=== PATIENT | female | born 1995 | race Caucasian/White ===

== ENCOUNTER 2017-11-25 19:07 | Emergency (ER) | payer MEDICAID, SELFPAY ==
[2017-11-25 19:07] VITALS: BP 124/92; PULSE 65; RESP 16; TEMP 36.7; O2SAT 98; BMI 33.5
--- NOTE | 2017-11-25 20:09 | ED.DCSUM_ITS ---
- ER Visit Summary Date of Service: 11/25/17 Chief Complaint: Tooth pain History of Present Illness: The patient is a 22 F presenting with tooth pain. Patient was eating food on Friday and cracked her right upper tooth. She cannot get into her dentist until next Friday. She has been taking Tylenol at home. Denies other complaints. Physical Examination: Vitals are stable. Patient is afebrile. Alert no acute distress. HEENT exam right upper molar fracture with no surrounding fluctuance. Lungs are clear and equal bilaterally. Heart is regular rate and rhythm. Extremities are unremarkable. Skin is warm and dry. Remainder of exam is unremarkable. Emergency Department Course and Treatment: Cavit was applied. She declined pain medications. She is advised to continue Tylenol. Advised to return to ED for worsening complaints. Disposition: Discharge home Impression: Fractured tooth This note was generated with [employer] dictation software. It may contain incorrect words, spelling, and punctuation that were not noted in review of the chart prior to signing ED Disposition - Plan for ED Patient: Chief Complaint: Dental Instructions: ED Fx Tooth Referrals: Care Physician,No Primary [Primary Care Provider] -
--- NOTE | 2017-11-25 20:17 | ED.DEP ---
ED Disposition - Plan for ED Patient: Chief Complaint: Dental Instructions: ED Fx Tooth Referrals: Care Physician,No Primary [Primary Care Provider] -
[2017-11-25 20:22] VITALS: BP 122/82; PULSE 75; RESP 16; O2SAT 98
== END 2017-11-25 20:23 | disposition home or self-care (01) ==
LOC: ED 19:54
PROVIDERS: Emergency Provider Emergency Medicine
DX: S02.5XXA Fracture of tooth (traumatic), initial encounter for closed fracture (principal); X58.XXXA Exposure to other specified factors, initial encounter; Y93.9 Activity, unspecified; Y92.9 Unspecified place or not applicable; Z72.0 Tobacco use
CPT/HCPCS: 99282

== ENCOUNTER 2018-02-15 05:17 | Emergency (ER) | payer MEDICAID, SELFPAY ==
[2018-02-15 05:18] VITALS: BP 119/77; PULSE 57; RESP 20; TEMP 36.7; O2SAT 98; BMI 34.7
[2018-02-15] MEDS: HYDROmorphone 1 MG/ML Syringe IM (07:59)
[2018-02-15] MEDS: Ondansetron 4 MG/2 ML Vial IM (07:59)
--- NOTE | 2018-02-15 08:39 | ED.DEP ---
ED Disposition - Plan for ED Patient: Chief Complaint: Dental Instructions: ED Tooth Pain Prescriptions: Oxycodone HCl/Acetaminophen [Percocet 5/325] 1 tablet PO Q6H PRN PRN 3 Days #8 tablet PRN Reason: Pain Ondansetron [Zofran Odt] 4 mg PO Q8H PRN PRN #10 tablet PRN Reason: Nausea Referrals: Care Physician,No Primary [Primary Care Provider] -
[2018-02-15 08:45] VITALS: RESP 15
--- NOTE | 2018-02-15 09:49 | ED.VISSUMM ---
- ER Visit Summary Date of Service: 02/15/18 Chief Complaint: Mouth pain History of Present Illness: The patient is a 22 F presenting with mouth pain. Patient had 5 teeth removed earlier in the week. She was given a prescription for [place]. She states this makes her nauseated and she is unable to tolerate it. She vomits when she tries to take [place]. Denies fever. No swelling. She denies other complaints. Physical Examination: Vitals are stable. Patient is afebrile. Alert no acute distress. HEENT exam lower molar tenderness, no fluctuance, no signs of dry socket, no sublingual edema Neck is supple. Lungs are clear and equal bilaterally. Heart is regular rate and rhythm. Skin is warm and dry. Remainder of exam is unremarkable. Emergency Department Course and Treatment: Patient is given Dilaudid, Zofran IM. She has improvement of her symptoms. She is given a prescription for Zofran and short course of Percocet. She is advised to follow-up with her dentist. Advised return to ED if worsening complaints. Disposition: Discharge home Impression: Post dental extraction pain This note was generated with [employer] dictation software. It may contain incorrect words, spelling, and punctuation that were not noted in review of the chart prior to signing ED Disposition - Plan for ED Patient: Disposition: Home or Assisted Living Chief Complaint: Dental Instructions: ED Tooth Pain Prescriptions: Oxycodone HCl/Acetaminophen [Percocet 5/325] 1 tablet PO Q6H PRN PRN 3 Days #8 tablet PRN Reason: Pain Ondansetron [Zofran Odt] 4 mg PO Q8H PRN PRN #10 tablet PRN Reason: Nausea Referrals: Care Physician,No Primary [Primary Care Provider] -
== END 2018-02-15 08:46 | disposition home or self-care (01) ==
LOC: ED 05:39
PROVIDERS: Emergency Provider Emergency Medicine
DX: K08.89 Other specified disorders of teeth and supporting structures (principal); Z98.818 Other dental procedure status; Z72.0 Tobacco use
CPT/HCPCS: 96372; 99282; J2405

== ENCOUNTER 2018-04-06 21:21 | Emergency (ER) | payer MEDICAID, SELFPAY ==
[2018-04-06 21:22] VITALS: BP 133/65; PULSE 82; RESP 18; TEMP 36.6; O2SAT 99; BMI 31.2
[2018-04-06 21:30] VITALS: RESP 16
--- NOTE | 2018-04-06 21:39 | ED.VISSUMM ---
- ER Visit Summary Date of Service: 04/06/18 Chief Complaint: Left ear pain and decreased hearing History of Present Illness: The patient is a 22 F who presents for 2-3 weeks of diminished hearing in the left ear and mild pain. Patient states she has had gradual worsening and is tried to clean her ear out. She used an ear candle and removed a large amount of wax but did not resolve her symptoms. She denies any fever, sore throat, rhinorrhea, sinus pressure or congestion, headache, cough, or any other upper airway symptoms or other associated symptoms. Patient has no family doctor. Physical Examination: Vital signs: afebrile, hemodynamically stable, no hypoxia on room air General: well nourished, well developed, in no distress Skin: warm, dry, no rash, no pallor HEENT: normocephalic and atraumatic; PERRL, EOMI, moist mucous membranes, no posterior oropharyngeal erythema or exudate, no sinus congestion, TM is pearly without any dullness or bulging, normal external canal. Left ear shows normal external anatomy, significant cerumen impaction, nonvisualization of the TM. No mastoid tenderness. No periauricular lymphadenopathy., Neck is supple with no lymphadenopathy or tenderness, no meningismus. Cardiovascular: regular rate and rhythm, no peripheral edema, 2+ pulses all distal extremities Respiratory: No increased work of breathing MSK: Moves all extremities, no deformities, normal strength Neuro: Awake and alert, oriented ?4. No facial droop, sensation and motor function intact and symmetric Test Results: [] Emergency Department Course and Treatment: Debrox drops were applied to the left ear to address the cerumen impaction. After irrigation, large amount of earwax was removed and patient had resolution of her decreased hearing. Reevaluation of the left ear showed a normal TM that was pearly, no dullness, and no erythema or bulging. External ear canal showed no signs of swelling, erythema or exudate. Patient is well appearing, no abnormal vital signs, no fever, and no findings concerning for upper respiratory infection or acute otitis media. Patient will use [id number] pain medication as needed for any residual pain. Patient is to follow-up with a primary care doctor and was given referral. Treatment Plan: [] Disposition: Discharge home Impression: Left cerumen impaction This note was generated with Dragon dictation software. It may contain incorrect words, spelling, and punctuation that were not noted in review of the chart prior to signing ED Disposition - Plan for ED Patient: Chief Complaint: Ear Problem Referrals: Care Physician,No Primary [Primary Care Provider] -
[2018-04-06] MEDS: Carbamide Peroxide 15 ML Bottle 5 DRP OTIC (21:53)
--- NOTE | 2018-04-06 23:02 | ED.DEP ---
ED Disposition - Plan for ED Patient: Disposition: Home or Assisted Living Chief Complaint: Ear Problem Instructions: ED Cerumen Impaction Treated Referrals: Care Physician,No Primary [Primary Care Provider] - Kathy Sesay MD [COURTESY STAFF PHYSICIAN] - 3-5 Days if not improving
== END 2018-04-06 23:12 | disposition home or self-care (01) ==
PROVIDERS: Emergency Provider Emergency Medicine
DX: H61.22 Impacted cerumen, left ear (principal)
CPT/HCPCS: 99282

== ENCOUNTER → 2020-09-01 11:44 | Outpatient (CLI) | payer MEDICAID, SELFPAY ==
--- NOTE | 2020-09-01 11:59 | RAD_ITS ---
STUDY: X-RAY CHEST REASON FOR EXAM: Female, 25 years old. PNEUMONIA/UNSPEC ORGANISM TECHNIQUE: PA and lateral views of the chest. COMPARISON: None. FINDINGS: The lungs are clear and expanded. There is no demonstrated pleural abnormality. Normal size heart. Normal mediastinum and gaby. Normal visualized pulmonary arteries. Normal visualized aortic arch and descending thoracic aorta. Normal visualized thoracic spine. Normal visualized ribs, clavicles, and shoulders. There is no demonstrated abnormality of the visualized soft tissue structures of the upper abdomen. RAD/Chest PA and Lateral IMPRESSION: Normal x-ray examination of the chest. Electronically Signed: Al Silver MD at 16:52 EDT Tel , Service support ,
== END ==
PROVIDERS: Referring Provider Nurse Practitioner Adult Health; Visit Provider Nurse Practitioner Adult Health
DX: J18.9 Pneumonia, unspecified organism (principal); I49.9 Cardiac arrhythmia, unspecified
CPT/HCPCS: 36415; 71046; 83036

== ENCOUNTER → 2020-09-07 09:22 | Outpatient (CLI) | payer MEDICAID, SELFPAY ==
--- NOTE | 2020-09-07 10:05 | EKG12_ITS ---
Test Reason : ARRHYTHMIA Blood Pressure : / mmHG Vent. Rate : 050 BPM Atrial Rate : 050 BPM P-R Int : 126 ms QRS Dur : 096 ms QT Int : 484 ms P-R-T Axes : -16 064 035 degrees QTc Int : 441 ms Sinus bradycardia with sinus arrhythmia Otherwise normal ECG Confirmed by NOAH IRBY, PASQUALE ([id number]), editorial specialist AUBREY ABRAMS ([id number]) on 09/07/2020 2:01:02 PM Referred By: [facility] Confirmed By:PASQUALE ZAMORA MD
[2020-09-07 11:38] LABS: Absolute Lymphocyte Count 1.39 X10^3/uL (0.83-4.51); Absolute Neutrophil Count 2.4 X10^3/uL (2.0-7.7); Basophil# 0.02 X10^3/uL; Basophil% 0.5 % (0-1); Eosinophils% 4.6 % (0-5); Hematocrit 43.5 % (37-47); Hemoglobin 13.9 g/dL (12.0-15.0); Lymphocyte # 1.39 X10^3/ul (4.0); Lymphocyte % 31.9 % (19-41); Mean Corpuscular Hgb 30.2 pg (27.0-32.0); Mean Corpuscular Volume 94.6 fL (81-99); Mean Platelet Vol. 10.8 fl (6.2-12.0); Monocyte# 0.36 X10^3/uL; Monocyte% 8.3 % (0-10); NRBC Flagged by Analyzer 0 % (0-5); Neutrophil # 2.38 X10^3/uL (2.7-7.7); Neutrophil % 54.5 % (47-70); Platelet Count 275 K/mm3 (150-450); RBC Distribution Width CV 12.5 % (11.6-14.6); RBC Distribution Width SD 43.4 fl (35.1-43.9); White Blood Count 4.4 K/mm3 (4.4-11.0)
[2020-09-07 12:15] LABS: AST(SGOT) 13 U/L (15-37); Alanine Aminotransfer ALT/SGPT 24 U/L (13-56); Albumin, Serum 3.5 g/dL (3.2-5.0); Alkaline Phosphatase 56 U/L (45-117); Anion Gap 6 (5-15); BUN 8 mg/dL (7-18); BUN/Creat Ratio 8.9 RATIO (10-20); Calcium,Total 8.7 mg/dL (8.5-10.1); Chloride 108 mmol/L (98-107); Cholesterol 185 mg/dL (200); EST Glomerular Filtration Rate 80 mL/min (>60); Est Glom Filt Rate - Afr Amer 97 mL/min (>60); Globulin 3.6 g/dL (2.2-4.2); Glucose 92 mg/dL (74-106); High Density Lipoprotein 43 mg/dL; Potassium 3.4 mmol/L (3.5-5.1); Protein, Total 7.1 g/dL (6.4-8.2); Sodium Level 141 mmol/L (136-145); Thyroid Stim Hormone (TSH) 0.64 uIU/mL (0.358-3.74); Triglycerides 121 mg/dL; Very Low Density Lipoprotein 24 mg/dL (5-40)
--- NOTE | 2020-09-07 12:54 | PFTCOMP ---
COMPLETE PULMONARY FUNCTION TEST INTERPRETATION Brief HPI: Patient is a 25 year old female, currently under the care of [facility], who presents to [facility] for complete pulmonary function tests secondary to diagnosis of pneumonia. Respiratory therapist reports good effort and reproducible results. Interpretation: Forced expiration spirometry shows a mild large airways obstructive ventilatory defect with an FEV1 of 94% predicted. There is no significant bronchodilator response by strict ATS criteria. Spirograms are of good quality and plateau slowly, indicating slowly emptying areas of the lungs. The respiratory flow volume loop shows decreased expiratory flow rates at high lung volumes consistent with small airways obstruction. Lung volumes by body plethysmography show a normal total lung capacity at 5.41 L, 97% predicted. All other lung volumes are within normal limits. Diffusion capacity by carbon monoxide is slightly decreased at 70% predicted. The airway resistance is normal. No previous pulmonary function tests were available for review. Impression: Irreversible mild large airways obstructive ventilatory defect with a symmetric reduction diffusing capacity.
== END ==
DX: J18.9 Pneumonia, unspecified organism (principal); R06.02 Shortness of breath; I49.9 Cardiac arrhythmia, unspecified
CPT/HCPCS: 36415; 80053; 80061; 84443; 85025; 93005; 94060; 94726; 94729

== ENCOUNTER → 2020-10-11 09:15 | Outpatient (CLI) | payer MEDICAID, SELFPAY ==
--- NOTE | 2020-10-11 09:30 | RAD_ITS ---
STUDY: X-RAY - LEFT KNEE REASON FOR EXAM: Left knee pain, mostly anterior. TECHNIQUE: 4 view(s) of the knee. COMPARISON: None. FINDINGS: Normal visualized distal femur. Normal visualized proximal tibia and fibula. Normal proximal tibiofibular articulation. Normal medial femorotibial compartment. Normal lateral femorotibial compartment. Normal patellofemoral articulation. The soft tissue structures are unremarkable. RAD/Knee 4 or More Views IMPRESSION: Normal x-ray examination of the left knee. Electronically Signed: Noé Knox MD at 10:24 EDT Tel , Service support ,
== END ==
DX: M25.562 Pain in left knee (principal)
CPT/HCPCS: 73564

== ENCOUNTER → 2020-11-29 14:55 | Outpatient (CLI) | payer MEDICAID, SELFPAY ==
--- NOTE | 2020-11-29 14:58 | CT_ITS ---
STUDY: CT CHEST WITH CONTRAST REASON FOR EXAM: Female, 25 years old. COPD RADIATION DOSAGE (If Supplied By Facility): CTDIvol = ( 10.28 ) mGy, DLP = ( 402.24 ) mGycm TECHNIQUE: Transaxial imaging was performed following intravenous administration of IV 100mL Isovue-300. Individualized dose optimization techniques were used for this CT. COMPARISON: None. FINDINGS: The lungs are normal. There is no demonstrated pleural abnormality. Normal heart and pericardium. Normal mediastinum. Normal hilar regions. Normal enhanced pulmonary arteries including the segmental and subsegmental branches without evidence of filling defect. Normal aorta arch and descending thoracic aorta. Normal osseous structures. There is no demonstrated abnormality of the visualized upper abdomen. CT/Chest WITH Contrast IMPRESSION: Normal enhanced CT Chest examination no evidence of PE. Electronically Signed: Stacie Cai, at 8:43 EDT Tel , Service support ,
== END ==
PROVIDERS: Referring Provider Nurse Practitioner Adult Health; Visit Provider Nurse Practitioner Adult Health
DX: J44.9 Chronic obstructive pulmonary disease, unspecified (principal)
CPT/HCPCS: 71260; Q9967

== ENCOUNTER → 2021-01-19 20:29 | Outpatient (CLI) | payer MEDICAID, SELFPAY | PROVIDERS: Referring Provider Nurse Practitioner Adult Health; Visit Provider Nurse Practitioner Adult Health | DX: G47.30 Sleep apnea, unspecified (principal) | CPT/HCPCS: 95810 ==

== ENCOUNTER 2021-11-27 22:27 | Emergency (ER) | payer OTHER, MEDICAID, SELFPAY ==
[2021-11-27 22:29] VITALS: BP 116/85; PULSE 87; RESP 16; TEMP 36.4; O2SAT 100; BMI 34.4
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
[2021-11-28] MEDS: cycloBENZAPRine HCl 10 MG Tablet PO (01:31)
[2021-11-28 01:34] VITALS: BP 120/63; PULSE 72; RESP 18; O2SAT 98
== END 2021-11-28 01:35 | disposition home or self-care (01) ==
PROVIDERS: Emergency Provider Emergency Medicine; Visit Provider Emergency Medicine
DX: S16.1XXA Strain of muscle, fascia and tendon at neck level, initial encounter (principal); V53.5XXA Driver of pick-up truck or van injured in collision with car, pick-up truck or van in traffic accident, initial encounter; K58.9 Irritable bowel syndrome, unspecified; F17.210 Nicotine dependence, cigarettes, uncomplicated
CPT/HCPCS: 70450; 71045; 72125; 99283

== ENCOUNTER 2022-01-28 10:30 | Outpatient (RCR) | payer MEDICAID, SELFPAY ==
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
== END 2022-01-28 19:00 | disposition home or self-care (01) ==
LOC: PT 10:30
PROVIDERS: PCP Nurse Practitioner Adult Health; Referring Provider Nurse Practitioner Adult Health; Visit Provider Nurse Practitioner Adult Health
DX: M54.6 Pain in thoracic spine (principal)
CPT/HCPCS: 97035; 97110; 97140; 97161

== ENCOUNTER 2022-05-12 13:53 | Emergency (ER) | payer BC, MEDICAID, SELFPAY ==
[2022-05-12 13:55] VITALS: BP 123/80; PULSE 70; RESP 18; TEMP 36; O2SAT 100
--- NOTE | 2022-05-12 14:07 | RAD_ITS ---
STUDY: X-RAY CHEST REASON FOR EXAM: Female, 26 years old. Cough TECHNIQUE: Single AP portable view of the chest. COMPARISON: November 28, 2021 chest x-ray FINDINGS: The lungs are clear and expanded. There is no demonstrated pleural abnormality. Normal size heart. Normal mediastinum and gaby. Normal visualized pulmonary arteries. Normal visualized aortic arch and descending thoracic aorta. Normal visualized thoracic spine. Normal visualized ribs, clavicles, and shoulders. There is no demonstrated abnormality of the visualized soft tissue structures of the upper abdomen. RAD/Chest 1 View (Portable) IMPRESSION: Normal x-ray examination of the chest. Electronically Signed: Yanelis Estevez MD at 15:11 EST Reading Location ID and State: [facility] / [place] Tel , Service support ,
--- NOTE | 2022-05-12 14:09 | EX.ED.DYSGE1 ---
HPI History of Present Illness Chief Complaint: Cough Informant: patient Narrative Narrative: 26-year-old female presenting to the emergency department chief complaint of continued cough. Patient states that last Friday night she began to feel ill with diarrhea and then developed cough and some congestion. She states she had a couple days where she started to feel good but is progressively gotten worse in terms of her cough and her ability to breathe patient. She states that her lungs feel like they hurt and she is having a hard time taking a deep breath. The cough is occasionally productive. Diarrhea is continuing. She states that she took a home COVID test and took a COVID test at her work that was negative. She has had intermittent fever that is low-grade in the 99-100 range. She feels dehydrated but does states that she has been drinking a lot of fluid. She states she has a history of asthma and COPD and smokes [facility] Medical History Cervical strain CHI (closed head injury) IBS (irritable bowel syndrome) Home Medications cyclobenzaprine 10 mg tablet 10 mg PO BID PRN muscle spasm #10 tabs 11/28/21 [Rx Last Taken Unknown] Allergy/AdvReac Type Severity Reaction Status Date / Time amoxicillin Allergy Anaphylaxis Verified 05/12/22 13:54 naproxen Allergy Anaphylaxis Verified 05/12/22 13:54 clindamycin AdvReac Nausea/Vom/ Verified 05/12/22 13:54 Diarrhea Penicillins AdvReac Hives Verified 05/12/22 13:54 tramadol AdvReac Nausea/Vom/ Verified 05/12/22 13:54 Diarrhea Social History (Updated 05/12/22 @ 14:[address] Behzad Reeder DO) Smoking Status: Current every day smoker tobacco type: cigarettes substance use type: does not use ROS ROS ED Constitutional Constitutional ED: Reports fever(s); Denies chills or weight loss Eyes Eyes: Denies change in vision or diplopia ENT ENT ED: Reports rhinorrhea; Denies ear pain or sore throat Cardiovascular Cardiovascular: Denies chest pain, orthopnea, palpitations or racing heartbeat Respiratory/Chest Respiratory/Chest: Reports cough and dyspnea; Denies orthopnea Gastrointestinal Gastrointestinal: Reports diarrhea; Denies abdominal pain, nausea or vomiting Genitourinary Genitourinary ED: Denies dysuria, hematuria or urinary frequency Musculoskeletal Musculoskeletal: Reports back pain; Denies arthralgias or myalgias Integumentary Denies abscess or rash Neurologic Neurologic: Denies headache(s) or weakness Psychiatric Psychiatric: Denies anxiety, depression, suicidal ideation or suicidal thoughts Endocrine Endocrinology: Denies polydipsia, polyphagia or polyuria Allergic/Immunologic Allergic/Immunologic ED: Denies mouth swelling, tongue swelling or urticaria EXAM Physical Exam Const Vital Signs: 05/12/22 13:55 05/12/22 14:40 05/12/22 14:45 Temperature 96.8 F L Temperature Source Temporal Pulse Rate 70 77 Respiratory Rate 18 21 H Respiratory Effort Normal Non-Labored Respiratory Pattern Normal Blood Pressure 123/80 H Blood Pressure Mean 94 Pulse Ox 100 Oxygen Delivery Method Room Air Positive well nourished and well developed General Appearance ED: well developed HEENT Reports normocephalic, head/scalp atraumatic and moist mucous membranes Eyes PERRL and EOMs intact bilaterally Neck no lymphadenopathy, supple and no JVD Resp normal respiratory effort Auscultation: wheezes expiratory wheezes, right lower and right upper Cardio regular rate, regular rhythm and no murmurs GI normal to inspection, nondistended, normoactive bowel sounds and non-tender Palpation: soft Back/Spine no CVA tenderness and normal ROM Extremity normal to inspection General Extremety ED: Negative for edema General Extremity: Negative for edema Neuro oriented x3 and CN's II-XII intact bilaterally Sensorium / Orientation: alert Motor Exam: strength 5/5 throughout Psych mental status grossly normal Mood & Affect: Negative for depressed or tearful Skin no rashes or lesions noted and no wounds MDM MDM MDM Narrative Medical decision making narrative: My interpretation of the patient's chest x-ray is no acute process. White count is low at 2.9. As she is already had 2 COVID test this week they did not repeat this. She has not had any recent fevers in the past couple days do not think an influenza test will be helpful for RSV. Clinically she is wheezing and we will treat her with breathing treatments. She felt better and her lungs sounded significant clear after these. She also received a liter of IV fluids. The patient will be discharged home with albuterol MDI with spacer as well as prednisone and doxycycline. Lab Data Attestation: I reviewed the patient's lab results. Labs: Laboratory Results - last 24 hr 05/12/22 05/12/22 14:15 14:15 WBC 2.9 L RBC 4.34 Hgb 13.2 Hct 40.3 MCV 92.9 MCH 30.4 MCHC 32.8 RDW Std Deviation 44.0 H RDW Coeff of Janae 12.9 Plt Count 193 MPV 10.7 Immature Gran % (Auto) 0.000 Neut % (Auto) 62.4 Lymph % (Auto) 22.0 [place] % (Auto) 14.3 H Eos % (Auto) 1.0 Baso % (Auto) 0.3 Absolute Neuts (auto) 1.8 L Absolute Lymphs (auto) 0.63 L Nucleated RBC % 0 Sodium 139 Potassium 3.4 L Chloride 110 H Carbon Dioxide 25.0 Anion Gap 4 L BUN 11 Creatinine 0.80 Estim Creat Clear Calc 102.72 Est GFR (MDRD) Af Amer 111 Est GFR (MDRD) Non-Af 92 BUN/Creatinine Ratio 13.8 Glucose 86 Calcium 8.3 L Total Bilirubin 0.20 AST 12 L ALT 22 Alkaline Phosphatase 46 Total Protein 7.0 Albumin 3.4 Globulin 3.6 Albumin/Globulin Ratio 0.9 Discharge Plan Triage Chief Complaint: Cough ED Provider: Behzad Reeder Dx/Rx/DC Orders Prescriptions: No Action cyclobenzaprine 10 mg tablet 10 mg PO BID PRN (Reason: muscle spasm) Qty: 10 0RF Primary Care Provider: [facility] Referrals: Avril Johnston, JOHN PAUL-C [[facility]] -
[2022-05-12] MEDS: 0.9% Normal Saline 1,000 ML 1000 ML IV (14:22)
[2022-05-12] MEDS: Ipratropium/Albuterol Sulfate 3 ML AMPUL.NEB INHALATION (14:23)
[2022-05-12] MEDS: Albuterol 2.5 MG/3 ML VIAL.NEB. INHALATION (14:23)
[2022-05-12 14:34] LABS: Absolute Lymphocyte Count 0.63 X10^3/uL (0.83-4.51); Absolute Neutrophil Count 1.8 X10^3/uL (2.0-7.7); Basophil# 0.01 X10^3/uL; Basophil% 0.3 % (0-1); Eosinophil# 0.03 X10^3/uL; Hematocrit 40.3 % (37-47); Hemoglobin 13.2 g/dL (12.0-15.0); Lymphocyte # 0.63 X10^3/ul (0.83-4.51); Mean Corp Hgb Conc 32.8 g/dL (32-36); Mean Corpuscular Hgb 30.4 pg (27.0-32.0); Mean Corpuscular Volume 92.9 fL (81-99); Mean Platelet Vol. 10.7 fl (6.2-12.0); Monocyte# 0.41 X10^3/uL; Monocyte% 14.3 % (0-10); NRBC Flagged by Analyzer 0 % (0-5); Neutrophil # 1.78 X10^3/uL (2.7-7.7); Neutrophil % 62.4 % (47-70); Platelet Count 193 K/mm3 (150-450); RBC Distribution Width CV 12.9 % (11.6-14.6); Red Blood Count 4.34 M/mm3 (4.2-5.4); White Blood Count 2.9 K/mm3 (4.4-11.0)
[2022-05-12 14:45] VITALS: PULSE 77; RESP 21
[2022-05-12 14:47] LABS: ALB/GLOB Ratio 0.9 RATIO (0.9-2.4); AST(SGOT) 12 U/L (15-37); Alanine Aminotransfer ALT/SGPT 22 U/L (13-56); Albumin, Serum 3.4 g/dL (3.2-5.0); Alkaline Phosphatase 46 U/L (45-117); Anion Gap 4 (5-15); BUN 11 mg/dL (7-18); BUN/Creat Ratio 13.8 RATIO (10-20); Calcium,Total 8.3 mg/dL (8.5-10.1); Chloride 110 mmol/L (98-107); EST Glomerular Filtration Rate 92 mL/min (>60); Est Glom Filt Rate - Afr Amer 111 mL/min (>60); Estimated Creatinine Clearance 102.72 ml/min; Globulin 3.6 g/dL (2.2-4.2); Glucose 86 mg/dL (74-106); Potassium 3.4 mmol/L (3.5-5.1); Sodium Level 139 mmol/L (136-145)
== END 2022-05-12 15:17 | disposition home or self-care (01) ==
PROVIDERS: Emergency Provider Emergency Medicine; Visit Provider Emergency Medicine
DX: R05.9 Cough, unspecified (principal); J44.9 Chronic obstructive pulmonary disease, unspecified; Z20.822 Contact with and (suspected) exposure to COVID-19; F17.210 Nicotine dependence, cigarettes, uncomplicated; R19.7 Diarrhea, unspecified
CPT/HCPCS: 71045; 80053; 85025; 94640; 96360; 99282; J7030; A4216

== ENCOUNTER → 2022-05-29 | Outpatient (CLI) | payer BC, MEDICAID, SELFPAY ==
[2022-05-29 11:21] LABS: Absolute Neutrophil Count 6.6 X10^3/uL (2.0-7.7); Basophil# 0.02 X10^3/uL; Basophil% 0.2 % (0-1); Eosinophil# 0.05 X10^3/uL; Eosinophils% 0.5 % (0-5); Hemoglobin 16.4 g/dL (12.0-15.0); Lymphocyte % 21.7 % (19-41); Mean Corp Hgb Conc 34.2 g/dL (32-36); Mean Corpuscular Hgb 31.4 pg (27.0-32.0); Mean Platelet Vol. 10.1 fl (6.2-12.0); Monocyte# 0.88 X10^3/uL; Monocyte% 9.1 % (0-10); NRBC Flagged by Analyzer 0 % (0-5); Neutrophil % 68.2 % (47-70); Platelet Count 248 K/mm3 (150-450); RBC Distribution Width CV 13.2 % (11.6-14.6); RBC Distribution Width SD 45.1 fl (35.1-43.9); Red Blood Count 5.22 M/mm3 (4.2-5.4); White Blood Count 9.7 K/mm3 (4.4-11.0)
[2022-05-29 11:59] LABS: ALB/GLOB Ratio 0.9 RATIO (0.9-2.4); AST(SGOT) 8 U/L (15-37); Alanine Aminotransfer ALT/SGPT 39 U/L (13-56); Albumin, Serum 3.7 g/dL (3.2-5.0); Alkaline Phosphatase 55 U/L (45-117); Anion Gap 5 (5-15); BUN 14 mg/dL (7-18); BUN/Creat Ratio 13.3 RATIO (10-20); Calcium,Total 9.4 mg/dL (8.5-10.1); Chloride 105 mmol/L (98-107); Creatinine, Serum 1.05 mg/dL (0.55-1.02); EST Glomerular Filtration Rate 66 mL/min (>60); Est Glom Filt Rate - Afr Amer 80 mL/min (>60); Globulin 3.9 g/dL (2.2-4.2); Glucose 101 mg/dL (74-106); Lipase 127 U/L (73-393); Potassium 4.2 mmol/L (3.5-5.1); Protein, Total 7.6 g/dL (6.4-8.2); Sodium Level 138 mmol/L (136-145)
== END | disposition home or self-care (01) ==
LOC: LAB 11:07
DX: K52.9 Noninfective gastroenteritis and colitis, unspecified (principal)
CPT/HCPCS: 36415; 80053; 83690; 85025

== ENCOUNTER → 2022-05-30 | Outpatient (CLI) | payer BC, MEDICAID, SELFPAY | END | disposition home or self-care (01) | LOC: LAB 13:18 | PROVIDERS: Visit Provider Nurse Practitioner Family | DX: K52.9 Noninfective gastroenteritis and colitis, unspecified (principal) | CPT/HCPCS: 87177; 87209; 87493; 87506 ==

== ENCOUNTER → 2022-06-21 | Outpatient (CLI) | payer MEDICAID, SELFPAY ==
--- NOTE | 2022-06-21 08:31 | CT_ITS ---
STUDY: CT ABDOMEN WITH CONTRAST REASON FOR EXAM: Female, 26 years old. FEVER/ABD PAIN. Diarrhea. RADIATION DOSAGE (If Supplied By Facility): CTDIvol = ( 13.64 ) mGy, DLP = ( 631.93 ) mGycm TECHNIQUE: Transaxial images were obtained post I.V. administration of IV 100mL Isovue-300, and oral contrast. Sagittal and coronal images were reconstructed. Individualized dose optimization techniques were used for this CT. COMPARISON: None. FINDINGS: The visualized lung bases are unremarkable. The visualized portions of the heart are within normal limits. Mild hepatomegaly. Normal gallbladder and extrahepatic biliary system. Normal spleen. Normal pancreas. Normal bilateral adrenal glands. Normal right kidney. Normal left kidney. Normal visualized stomach. Normal small intestine. Normal colon. The appendix is visualized and appears normal. Normal abdominal aorta. Normal inferior vena cava. Normal retroperitoneum. Normal abdominal wall. Normal osseous structures. CT/Abdomen WITH IV Contrast IMPRESSION: Mild hepatomegaly. Electronically Signed: Ryan Acosta MD at 9:45 EST ,
== END | disposition home or self-care (01) ==
LOC: CT 08:30
PROVIDERS: Visit Provider Nurse Practitioner Family
DX: R50.9 Fever, unspecified (principal); R19.7 Diarrhea, unspecified; R10.9 Unspecified abdominal pain; R16.0 Hepatomegaly, not elsewhere classified
CPT/HCPCS: 74160; Q9967

== ENCOUNTER → 2022-06-24 | Outpatient (CLI) | payer BC, MEDICAID, SELFPAY ==
[2022-06-28 23:14] LABS: HPV Reflexed? NOT INDICATED
== END | disposition home or self-care (01) ==
LOC: LABSPEC 15:20
PROVIDERS: Referring Provider Registered Nurse; Visit Provider Registered Nurse
DX: Z01.419 Encounter for gynecological examination (general) (routine) without abnormal findings (principal); C53.9 Malignant neoplasm of cervix uteri, unspecified
CPT/HCPCS: 88175; G0145

== ENCOUNTER → 2022-07-15 | Outpatient (CLI) | payer BC, MEDICAID, SELFPAY | END | disposition home or self-care (01) | PROVIDERS: Referring Provider Registered Nurse; Visit Provider Registered Nurse | DX: N89.8 Other specified noninflammatory disorders of vagina (principal) | CPT/HCPCS: 87070; 87205 ==

== ENCOUNTER 2022-09-28 15:50 | Emergency (ER) | payer MEDICAID, SELFPAY ==
[2022-09-28 15:51] VITALS: BP 133/83; PULSE 126; RESP 18; TEMP 36.3; O2SAT 97; BMI 28.2
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
[2022-09-28] MEDS: 0.9% Normal Saline 1,000 ML 999 ML IV (16:19)
[2022-09-28] MEDS: DiphenhydrAMINE 50 MG/ML Syringe 25 MG IV (16:24)
[2022-09-28] MEDS: proCHLORPERazine 10 MG/2 ML Vial IV (16:27)
[2022-09-28 16:53] VITALS: BP 120/71; PULSE 65; RESP 18
[2022-09-28 17:02] VITALS: PULSE 76; O2SAT 98
[2022-09-28 17:05] VITALS: BP 100/40; PULSE 66; RESP 18; O2SAT 99
[2022-09-28 17:14] VITALS: BP 116/77; PULSE 64; RESP 18; O2SAT 100
== END 2022-09-28 17:18 | disposition home or self-care (01) ==
PROVIDERS: Emergency Provider Emergency Medicine; Visit Provider Emergency Medicine
DX: G43.909 Migraine, unspecified, not intractable, without status migrainosus (principal); F17.210 Nicotine dependence, cigarettes, uncomplicated
CPT/HCPCS: 96361; 96374; 96375; 99283; J7030; A4216

== ENCOUNTER 2022-12-23 08:46 | Emergency (ER) | payer SELFPAY ==
[2022-12-23 08:47] VITALS: BP 135/81; PULSE 66; RESP 18; TEMP 36.1; O2SAT 100; BMI 25.8
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
[2022-12-23] MEDS: Ondansetron 4 MG/2 ML Vial IV (09:00)
[2022-12-23] MEDS: 0.9% Normal Saline 1,000 ML 1000 ML IV (09:00)
== END 2022-12-23 10:06 | disposition home or self-care (01) ==
PROVIDERS: Emergency Provider Emergency Medicine; Visit Provider Emergency Medicine
DX: A08.4 Viral intestinal infection, unspecified (principal); E86.0 Dehydration; F17.210 Nicotine dependence, cigarettes, uncomplicated
CPT/HCPCS: 96361; 96374; 99283; J7030; A4216; J2405

== ENCOUNTER 2023-09-22 03:18 | Emergency (ER) | payer SELFPAY ==
[2023-09-22 03:18] VITALS: BP 154/95; PULSE 63; RESP 18; TEMP 36.4; O2SAT 98; BMI 31.8
--- NOTE | 2023-09-22 05:05 | EX.ED.DYSGE1 ---
HPI History of Present Illness Chief Complaint: Ear Problem Informant: patient Narrative Narrative: Patient is a 28-year-old female with past medical history of PCOS and IBS. She states that over the past 5 days or so she has had congestion drainage and cough. She reports in the last 24 hours she has had increasing left ear pain which then led to spontaneous blood from the ear canal. Secondary to the worsening pain and now presence of blood there is concern for infection and therefore she comes in for evaluation [facility] Medical History Cervical strain CHI (closed head injury) IBS (irritable bowel syndrome) Home Medications cyclobenzaprine 10 mg tablet 10 mg PO BID PRN muscle spasm #10 tabs 11/28/21 [Rx Last Taken Unknown] albuterol sulfate 90 mcg/actuation aerosol inhaler (Ventolin HFA) 2 puff inhalation Q4H PRN PRN Wheezing ##1 05/12/22 [Rx Last Taken Unknown] ondansetron 4 mg disintegrating tablet 4 mg PO Q6H PRN nausea and vomiting #7 tabs 12/23/22 [Rx Last Taken Unknown] cefdinir 300 mg capsule 300 mg PO BID 10 days #20 caps 09/22/23 [Rx Last Taken Unknown] oxycodone-acetaminophen 5 mg-325 mg tablet (Percocet) 1 tab PO Q6H PRN pain 3 days #12 tabs 09/22/23 [Rx Last Taken Unknown] Allergy/AdvReac Type Severity Reaction Status Date / Time amoxicillin Allergy Anaphylaxis Verified 09/22/23 03:20 naproxen Allergy Anaphylaxis Verified 09/22/23 03:20 clindamycin AdvReac Nausea/Vom/ Verified 09/22/23 03:20 Diarrhea Penicillins AdvReac Hives Verified 09/22/23 03:20 tramadol AdvReac Nausea/Vom/ Verified 09/22/23 03:20 Diarrhea Family History Grandmother Cervical cancer Social History adopted: No household members: spouse and children current occupational status: employed current occupation: [employer] current occupational exposures/hazards: No pets and animals: Yes pets and animals: cat(s), dog(s), bird(s) and guinea pig(s) sexually active: Yes Smoking Status: Current every day smoker tobacco type: cigarettes alcohol intake: never substance use type: marijuana caffeine: Yes Type: carbonated beverages and tea what type of physical activity do you participate in: none seatbelt use: always do you feel safe at home: Yes additional social history: - Robert BORGES ROS ED Constitutional Constitutional ED: Denies chills or fever(s) ENT ENT ED: Reports ear pain left, rhinorrhea and sore throat Cardiovascular Cardiovascular: Denies chest pain Respiratory/Chest Respiratory/Chest: Reports cough; Denies dyspnea Gastrointestinal Gastrointestinal: Denies abdominal pain, diarrhea, nausea or vomiting Genitourinary Genitourinary ED: Denies dysuria Musculoskeletal Musculoskeletal: Denies myalgias Integumentary Denies rash Neurologic Neurologic: Denies headache(s) Hematologic/Lymphatic Hematologic/Lymphatic: Denies easy bleeding or easy bruising EXAM Physical Exam Const Vital Signs: 09/22/23 03:18 Temperature 97.5 F L Temperature Source Temporal Pulse Rate 63 Respiratory Rate 18 Blood Pressure 154/95 H Blood Pressure Mean 114 Pulse Ox 98 Oxygen Delivery Method Room Air Positive well nourished and well developed General Appearance ED: well developed; Negative for pallor HEENT HEENT Narrative: Nasal mucosa is hyperemic and boggy with enlarged inferior nasal turbinates There is cobblestoning the posterior pharynx consistent with sinus drainage without airway edema or compromise Right canal and TM are normal Left canal is normal but TM is erythematous and bulging with spontaneous rupture in the right lower quadrant region and minimal amount of blood in the ear canal. No mastoid tenderness bilaterally Eyes PERRL and EOMs intact bilaterally General Eye ED: Negative for scleral icterus Neck supple Neck Narrative: Positive anterior cervical adenopathy Resp normal respiratory effort and clear to auscultation bilaterally Cardio regular rate and regular rhythm Extremity normal to inspection Neuro oriented x3, CN's II-XII intact bilaterally and no sensory deficits noted Sensorium / Orientation: alert Motor Exam: strength 5/5 throughout Psych mental status grossly normal Skin no rashes or lesions noted and no wounds General Skin Exam: Negative for jaundice or pallor MDM MDM MDM Narrative Medical decision making narrative: Patient presented to the ER hypertensive otherwise with stable vitals. History and exam is concerning for eustachian tube dysfunction versus otitis externa versus otitis media with rupture. Physical exam showed a erythematous tympanic membrane on the left with a hole and minimal blood within the ear canal consistent with otitis media leading to spontaneous rupture. No signs of acute mastoiditis or otitis externa. Therefore do not feel there is need for further workup and patient will be placed on antibiotics as well as pain control and is otherwise safe for discharge History & Record Review Discussion w/independent historian: Patient Discharge Plan Triage Chief Complaint: Ear Problem ED Provider: Lei Awad Dx/Rx/DC Orders Clinical Impression: Acute otitis media of left ear with perforation, PCOS (polycystic ovarian syndrome), IBS (irritable bowel syndrome) Instructions: ED Otitis Media Adult, ED PERFORATED TM Infected [Adult] Prescriptions: New cefdinir 300 mg capsule 300 mg PO BID 10 Days Qty: 20 0RF oxycodone-acetaminophen [Percocet] 5-325 mg tablet 1 tab PO Q6H PRN (Reason: pain) 3 Days Qty: 12 0RF No Action cyclobenzaprine 10 mg tablet 10 mg PO BID PRN (Reason: muscle spasm) Qty: 10 0RF albuterol sulfate [Ventolin HFA] 90 mcg/actuation HFA aerosol inhaler 2 puff inhalation Q4H PRN PRN (Reason: Wheezing) Qty: 1 0RF Rx Instructions: dispense with spacer ondansetron 4 mg tablet,disintegrating 4 mg PO Q6H PRN (Reason: nausea and vomiting) Qty: 7 0RF Stand Alone Forms: ED Work / School Excuse [facility] Referrals: William Conner MD [Med Staff - Active Staff] - [facility] [Primary Care Provider] - Disposition Disposition: Home, Self Care Discharge Date/Time: 09/22/23 05:19
[2023-09-22] MEDS: Oxycodone/Apap 5/325 Tablet PO (05:17)
[2023-09-22] MEDS: Cefdinir 300 MG Capsule PO (05:17)
== END 2023-09-22 05:19 | disposition home or self-care (01) ==
PROVIDERS: Emergency Provider Emergency Medicine; Visit Provider Emergency Medicine
DX: H66.92 Otitis media, unspecified, left ear (principal); K58.9 Irritable bowel syndrome, unspecified; E28.2 Polycystic ovarian syndrome; H72.92 Unspecified perforation of tympanic membrane, left ear
CPT/HCPCS: 99283

== ENCOUNTER → 2024-05-03 | Outpatient (CLI) | payer OTHER, SELFPAY ==
--- NOTE | 2024-05-03 14:34 | MRI_ITS ---
STUDY: MRI LEFT KNEE REASON FOR EXAM: Female, 28 years old. Pain. Injury. TECHNIQUE: Standardized fat and water weighted pulse sequences were obtained in all 3 orthogonal planes. COMPARISON: X-ray April 08, 2024 FINDINGS: Normal medial meniscus. Normal hyaline cartilage of the medial femorotibial compartment. Normal medial femoral condyle and tibial plateau. Normal medial collateral ligamentous complex (MCL). Normal distal semimembranosus, gracilis and semitendinosus tendons. Normal lateral meniscus. Normal hyaline cartilage of the lateral femorotibial compartment. Normal lateral tibial plateau. There is marrow edema of the anterior lateral femoral condyle. There is marrow edema of the inferior medial patella. Normal proximal tibiofibular articulation. Normal lateral collateral (fibular) ligament. Normal popliteus tendon. Normal biceps femoris tendon. Normal anterior cruciate ligament (ACL). Normal posterior cruciate ligament (PCL). Normal congruent patellofemoral articulation. There is a shallow trochlear groove. Tibial tubercle trochlear groove distance is 1.3 cm. Normal hyaline cartilage of the patellofemoral compartment. Normal medial and lateral patellar retinaculum. Normal quadriceps tendon. Normal patellar tendon. Normal Hoffa''s fat pad. There is a moderate volume joint effusion. The soft tissues are unremarkable. The otherwise visualized osseous structures are unremarkable. MRI/Lower Ext Joint Only (Routine) IMPRESSION: Contusions of the patella and lateral femoral condyle consistent with recent transient lateral patellar dislocation. Joint effusion. No meniscal tear. Electronically Signed: Dany Ochoa MD at 23:08 EST ,
== END | disposition home or self-care (01) ==
LOC: MRI 14:19
PROVIDERS: Referring Provider Orthopaedic Surgery Sports Medicine; Visit Provider Orthopaedic Surgery Sports Medicine
DX: S86.912A Strain of unspecified muscle(s) and tendon(s) at lower leg level, left leg, initial encounter (principal); X58.XXXA Exposure to other specified factors, initial encounter
CPT/HCPCS: 73721

== ENCOUNTER 2024-07-07 15:00 | Outpatient (RCR) | payer OTHER, SELFPAY ==
--- NOTE | 2024-05-11 09:54 | HP.PTEVAL_ITS ---
Patient's Visit Information Visit Information Visit Information: DELONTE ALVAREZ is a 28 year old F referred to Physical Therapy by Dr. Clem Pérez MD with a diagnosis of L knee pain. Date of Evaluation: 05/11/24 Physical Therapist: HUBERT Mendoza Visit Plan Frequency: 3x /Week Duration: 6 Weeks Plan: 3X/ week for 6 weeks for L knee AROM, L hip and knee strength, increase weightbearing, stairs, gait, SLB and proprioception with HEP HEP: heel slides supine and sitting, S/L hip abd, SLR, QS Subjective Subjective: Pt reports that she turned to walk in the opposite direction and she heard a pop and fell down grabbing her knee cause it hurt so bad. She was on uneven ground and it was slippery out. That happened on 04/06. She went to the ER because it swelled up immed. She can not take NSAIDS. She drove herself to the ER. They told her that nothing was broken in ER and offered her crutches but she did not take them but then the following day she did get crutches from the ortho Dr. She had them for about a week. She Dr Pérez the other day and they gave her a patellar stabilization brace and said no pivot or twisting or s tanding for long periods of time. She is working 12 hours a week light duty. 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 MRI is positive for evidence of lateral patellar dislocation on the L Pain L knee pain: Pain Intensity (Out of 10): 5 Pain Intensity Range: 7 Objective Objective: Gait: walks with decrease stance time on the L and decreased stride length. She walks with her L knee bent as well with decreased heel to toe gait pattern R knee AROM 0-138 L knee AROM -2 to 113 LE MMT: R hip flex 11.1 and L 5.3 R knee ext 18.2 and L 6.8 R knee flexion 9.2 and 4.4 Pt needs a little AA for SLR X 10... Some pain, Quad seemed to kick in the more we did Pt was able to S/L hip abd indep but was weak. Girth measurements: Tib Tib R 36.1 and L 37.2 Infra Pat R 40.5 and L 40.2 Supra pat R 46.5 and L 46 Balance/Special Test Scores Lower Extremity Functional Score: 25 Goals Goal 1:: I HEP Goal Time Frame: 6-8 Weeks Goal 2:: Increase L knee AROM (at the time of the eval: R knee AROM 0-138 L knee AROM -2 to 113) Goal Time Frame: 6-8 Weeks Goal 3:: Increase L knee and hip strength (at the time of the eval: LE MMT: R hip flex 11.1 and L 5.3 R knee ext 18.2 and L 6.8 R knee flexion 9.2 and 4.4) Goal Time Frame: 6-8 Weeks Goal 4:: Be able to walk with no antalgic gait Goal Time Frame: 6-8 Weeks Goal 5:: Be able to go up and down steps recip with 1 hand rail with ease and no hesitation Goal Time Frame: 6-8 Weeks Rehabilitation Potential Rehabilitation Potential: Good Anticipated Interventions Patient/Client Instruction: Educate patient on: Condition and Plan of Care For the Purpose of:: To decrease pain, To increase ROM, To improve nutrient delivery to tissue, To improve muscle performance and motor function, To improve ability to perform ADL's, To increase tolerance to activity/condition/position, To improve performance and independence with ADL's, To decrease level of supervision to perform tasks, To improve ability of physical actions for home/community/work/leisure, To improve gait and locomotor functions, To improve health of tissue, To decrease soft tissue restriction, To increase flexibility/ROM, To improve endurance and To improve balance Therapeutic Exercise to Include: Strength training, Endurance training, Balance training, Flexibilty training, Gait and locomotor training, Neuromotor development, Passive ROM and Active ROM For the Purpose of:: To decrease pain, To decrease swelling/inflammation, To increase ROM, To improve nutrient delivery to tissue, To increase oxygenation perfusion, To improve muscle performance and motor function, To improve ability to perform ADL's, To increase tolerance to activity/condition/position, To improve performance and independence with ADL's, To decrease level of supervision to perform tasks, To improve ability of physical actions for home/community/work/leisure, To improve gait and locomotor functions, To improve health of tissue, To decrease soft tissue restriction and To increase flexibility/ROM Functional Training to Include: Gait training For the Purpose of:: To improve gait and locomotor functions and To improve safety with gait Text: Thank you for the opportunity to evaluate your patient. For Medicare and Medicare HMO plans, please review the plan of care and approve it. It will need to be FAXED BACK to us at [phone] for Medicare purposes. For Medicare only, by signing this I certify the plan of care. Please let me know if there are questions or concerns regarding this plan of care. Physician Signature: Date:
== END 2024-07-07 19:00 | disposition home or self-care (01) ==
LOC: PT 15:00
PROVIDERS: Referring Provider Orthopaedic Surgery Sports Medicine; Visit Provider Orthopaedic Surgery Sports Medicine
DX: S86.912D Strain of unspecified muscle(s) and tendon(s) at lower leg level, left leg, subsequent encounter (principal); M25.562 Pain in left knee
CPT/HCPCS: 97110; 97161

== ENCOUNTER 2024-09-15 09:56 | Day surgery (SDC) | payer OTHER, SELFPAY ==
--- NOTE | 2024-09-01 14:31 | PAT.ANE_ITS ---
Pre-Assessment Diagnosis/Proposed Procedure Planned Operative Procedure(s): (L) Left knee Arthroscopy, reconstruction medial patellofemoral ligament Anesthesia History Anesthesia History - component technician: Anesthesia History - component technician Hx Hospitalization No 09/01/24 13:47 Any Problems With Anesthesia No 09/01/24 13:47 Cholinesterase deficiency No 09/01/24 13:47 You/Your Family Experience No 09/01/24 13:47 fever (hyperthermia) with Relationship Recent Exposure to Contagious Disease Does patient have nerve No 09/01/24 13:47 stimulator Patient instructed to have device shut off --Does patient have Pacemaker or ICD? When Was Last Pacemaker Check QUESTION #4 FULL TEXT: You/Your Family Experience fever (hyperthermia) with Anesthesia Last Oral Intake Last Oral intake: Last Oral Intake NPO since Meds taken in AM with sips of water? Meds patient instructed to take am of surgery PONV PONV - component technician: PONV - component technician Female Yes 09/01/24 13:47 HX of Motion Sickness No 09/01/24 13:47 HX of N/V After Surgery No 09/01/24 13:47 Non-Smoker No 09/01/24 13:47 Duration of Surgery greater Yes 09/01/24 13:47 than 60 minutes Number of Risk Factors 2 09/01/24 13:47 PONV Score Moderate Risk 09/01/24 13:47 Height & Weight Height & Weight: Anesthesia: Height & Weight Height 5 ft 6 in 04/08/24 09:31 Respiratory Assessment Respiratory Assessment - component technician: Respiratory Tract Infection Hx - component technician Hx Respiratory Tract Infection No 09/01/24 13:47 STOP Sleep Apnea STOP Sleep Apnea - component technician: STOP Sleep Apnea - component technician Hx Hypertension No 09/01/24 13:47 Hx Sleep Apnea No 09/01/24 13:47 CPAP BIPAP Do you snore loudly (louder No 09/01/24 13:47 than talking or can be heard Do you often feel tired/ No 09/01/24 13:47 fatigued/ sleepy during daytime? Has anyone observed you stop No 09/01/24 13:47 breathing during sleep? STOP Results Negative 09/01/24 13:47 QUESTION #5 FULL TEXT : Do you snore loudly (louder than talking or can be heard through closed doors)? Tobacco Use History Tobacco Use History - component technician: Tobacco Use History - component technician Tobacco Use Smoking Status Current every day smoker 09/01/24 13:47 Hx Tobacco Use No 09/01/24 13:47 Years Smoking Packs Smoked per Day Smoking Cessation Date was within the last 15 years Hx Smoking Cessation Date Hx Smoking Cessation Counseling Hematologic Medial History Hematologic Hx - component technician: Hematologic Medical Hx - sap manager Hx of Blood Transfusion No 09/01/24 13:47 Hx of Transfusion in last 3 No 09/01/24 13:47 Months Date of Last Transfusion (if within last 3 months) Ever experience any problems No 09/01/24 13:47 with transfusion(s)? Specify any problems Hx of Preganancy in last 3 No 09/01/24 13:47 Months Nurse Filling Out Transfusion VCHRISTIN 09/01/24 13:47 & Questions: Date: 09/01/24 09/01/24 13:47 Time: 13:48 09/01/24 13:47 Patient unable to answer at this time (ie. confused, unrespo /Reproduction History /Reproductive History - component technician: /Reproductive Hx- component technician Hx Now No 09/01/24 13:47 Gestational Age (in weeks): EDC: Hx Hx Para Hx Section SAB No 09/01/24 13:47 [facility] Medical History (Updated 09/01/24 @ 13:46 by Helen Gorman) Wears glasses Depression Anxiety Injury of head and neck History of IBS Vapes nicotine containing substance Smoker COPD (chronic obstructive pulmonary disease) History of pain when walking Hypotension Instability of left patellofemoral joint Strain of left knee Left knee pain Cervical strain CHI (closed head injury) IBS (irritable bowel syndrome) Home Medications ?Medication ?Instructions ?Recorded ?Last Taken ?Type albuterol sulfate 90 mcg/actuation 2 puff inhalation Q 4H PRN PRN 05/12/22 Unknown Rx aerosol inhaler (Ventolin HFA) Wheezing ##1 acetaminophen 325 mg capsule 325 mg PO ONCE PRN pain 1 Unknown History (Tylenol) Allergy/AdvReac Type Severity Reaction Status Date / Time amoxicillin Allergy Anaphylaxis Verified 09/01/24 13:40 naproxen Allergy Anaphylaxis Verified 09/01/24 13:40 clindamycin AdvReac Nausea/Vom/ Verified 09/01/24 13:40 Diarrhea Penicillins AdvReac Hives Verified 09/01/24 13:40 tramadol AdvReac Nausea/Vom/ Verified 09/01/24 13:40 Diarrhea Family History Grandmother Cervical cancer Surgical History (Updated 09/01/24 @ 13:46 by Helen Gorman) Hx of colonoscopy Social History adopted: No household members: spouse and children current occupational status: employed current occupation: [employer] current occupational exposures/hazards: No pets and animals: Yes pets and animals: cat(s), dog(s), bird(s) and guinea pig(s) sexually active: Yes Smoking Status: Current every day smoker tobacco type: cigarettes and e- cigarettes alcohol intake: never substance use type: marijuana caffeine: Yes Type: carbonated beverages and tea what type of physical activity do you participate in: none seatbelt use: always do you feel safe at home: Yes additional social history: - Robert Audit: Pertinent Findings Pertinent Findings EKG Perinent findings: 09/07/2020. Sinus bradycardia with sinus arrhythmia otherwise normal EKG. 50 bpm Recommendation Anesthesia Recommendation Anesthesia recommendation: OPTIMIZED for anesthesia
[2024-09-15] VITALS (12 sets, daily range): BP systolic 93–119; BP diastolic 57–81; PULSE 59–76; RESP 16–20; TEMP 36.2–36.6; O2SAT 95–100; BMI 27.7
--- NOTE | 2024-09-15 10:16 | PRE.ANES_ITS ---
ASA Classification* ASA Classification ASA Classification: 2 Assessment & Plan Anesthesia* Anesthesia Assessment Anesthesia Assessment: Discussed sedation and/or anesthesia options, risks, benefits, and alternatives with patient/parents/legal guardian/POA. Questions invited. The patient/parents/legal guardian/POA seems to understand and agrees to proceed with anesthesia plan. Reviewed the physical assessment, medical history, allergy history and patient home medications list prior to surgery/procedure/anesthetic and documented any changes. Performed airway and anesthesia risk assessments. Anesthesia Type Anesthesia Type: General Anesthesia Focused Assessment* Airway Assessment Mouth opens: >3 cm Mallampati Score: II Focused Labs Anesthesia Preop lab: CBC WBC 9.7 K/mm3 (4.4-11.0) 05/29/22 11:09 05/29/22 RBC 5.22 M/mm3 (4.2-5.4) 05/29/22 11:09 05/29/22 Hgb 16.4 g/dL (12.0-15.0) H 05/29/22 11:09 2 Hct 48.0 % (37-47) H 05/29/22 11:09 05/29/22 Plt Count 248 K/mm3 (150-450) 05/29/22 11:09 05/29/22 CHEMISTRY Potassium 4.2 mmol/L (3.5-5.1) 05/29/22 11:09 05/29/22 Sodium 138 mmol/L (136-145) 05/29/22 11:09 05/29/22 BUN 14 mg/dL (7-18) 05/29/22 11:09 05/29/22 Creatinine 1.05 mg/dL (0.55-1.02) H 05/29/22 11:09 Glucose 101 mg/dL (74-106) 05/29/22 11:09 05/29/22 TSH 0.64 uIU/mL (0.358-3.74) 09/07/20 10:18 COAG Urine Test Pending 09/15/24 10:10 09/15/24 Pre-Assessment Diagnosis/Proposed Procedure Planned Operative Procedure(s): (L) Left knee Arthroscopy, reconstruction medial patellofemoral ligament Anesthesia History Anesthesia History - lens generating machine tender: Anesthesia History - lens generating machine tender Hx Hospitalization No 09/01/24 13:47 Any Problems With Anesthesia No 09/01/24 13:47 Cholinesterase deficiency No 09/01/24 13:47 You/Your Family Experience No 09/01/24 13:47 fever (hyperthermia) with Relationship Recent Exposure to Contagious Disease Does patient have nerve No 09/01/24 13:47 stimulator Patient instructed to have device shut off --Does patient have Pacemaker or ICD? When Was Last Pacemaker Check QUESTION #4 FULL TEXT: You/Your Family Experience fever (hyperthermia) with Anesthesia Last Oral Intake Last Oral intake: Last Oral Intake NPO since Meds taken in AM with sips of water? Meds patient instructed to take am of surgery PONV PONV - lens generating machine tender: PONV - lens generating machine tender Female Yes 09/01/24 13:47 HX of Motion Sickness No 09/01/24 13:47 HX of N/V After Surgery No 09/01/24 13:47 Non-Smoker No 09/01/24 13:47 Duration of Surgery greater Yes 09/01/24 13:47 than 60 minutes Number of Risk Factors 2 09/01/24 13:47 PONV Score Moderate Risk 09/01/24 13:47 Height & Weight Height & Weight: Anesthesia: Height & Weight Height 5 ft 6 in 04/08/24 09:31 Respiratory Assessment Respiratory Assessment - lens generating machine tender: Respiratory Tract Infection Hx - lens generating machine tender Hx Respiratory Tract Infection No 09/01/24 13:47 STOP Sleep Apnea STOP Sleep Apnea - lens generating machine tender: STOP Sleep Apnea - lens generating machine tender Hx Hypertension No 09/01/24 13:47 Hx Sleep Apnea No 09/01/24 13:47 CPAP BIPAP Do you snore loudly (louder No 09/01/24 13:47 than talking or can be heard Do you often feel tired/ No 09/01/24 13:47 fatigued/ sleepy during daytime? Has anyone observed you stop No 09/01/24 13:47 breathing during sleep? STOP Results Negative 09/01/24 13:47 QUESTION #5 FULL TEXT : Do you snore loudly (louder than talking or can be h eard through closed doors)? 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 Specify any problems Hx of Preganancy in last 3 No 09/01/24 13:47 Months Nurse Filling Out Transfusion VCHRISTIN 09/01/24 13:47 & Questions: Date: 09/01/24 09/01/24 13:47 Time: 13:48 09/01/24 13:47 Patient unable to answer at this time (ie. confused, unrespo /Reproduction History /Reproductive History - lens generating machine tender: /Reproductive Hx- lens generating machine tender Hx Now No 09/01/24 13:47 Gestational Age (in weeks): EDC: Hx Hx Para Hx Section SAB No 09/01/24 13:47 Active Medications Active Medications: Current Medications Generic Name Dose Route Start Last Admin Trade Name Freq PRN Reason Stop Dose Admin Cefazolin Sodium 2 gm/ N/A 20 mls @ 400 mls/hr 09/15/24 11:30 IV 09/15/24 11:32 PREOP ONE [facility] Medical History Wears glasses Depression Anxiety Injury of head and neck History of IBS Vapes nicotine containing substance Smoker COPD (chronic obstructive pulmonary disease) History of pain when walking Hypotension Instability of left patellofemoral joint Strain of left knee Left knee pain Cervical strain CHI (closed head injury) IBS (irritable bowel syndrome) Home Medications ?Medication ?Instructions ?Recorded ?Last Taken ?Type albuterol sulfate 90 mcg/actuation 2 puff inhalation Q 4H PRN PRN 05/12/22 Unknown Rx aerosol inhaler (Ventolin HFA) Wheezing ##1 acetaminophen 325 mg capsule 325 mg PO ONCE PRN pain 1 Unknown History (Tylenol) Allergy/AdvReac Type Severity Reaction Status Date / Time amoxicillin Allergy Anaphylaxis Verified 09/01/24 13:40 naproxen Allergy Anaphylaxis Verified 09/01/24 13:40 clindamycin AdvReac Nausea/Vom/ Verified 09/01/24 13:40 Diarrhea Penicillins AdvReac Hives Verified 09/01/24 13:40 tramadol AdvReac Nausea/Vom/ Verified 09/01/24 13:40 Diarrhea Family History Grandmother Cervical cancer Surgical History Hx of colonoscopy Social History adopted: No household members: spouse and children current occupational status: employed current occupation: [employer] current occupational exposures/hazards: No pets and animals: Yes pets and animals: cat(s), dog(s), bird(s) and guinea pig(s) sexually active: Yes Smoking Status: Current every day smoker tobacco type: cigarettes and e- cigarettes alcohol intake: never substance use type: marijuana caffeine: Yes Type: carbonated beverages and tea what type of physical activity do you participate in: none seatbelt use: always do you feel safe at home: Yes additional social history: - Robert Review of Systems (Anesthesia) ROS Narrative System reviewed and no additional complaints, except as documented.
[2024-09-15 10:25] LABS: Internal QC Validated? YES +Cl - CLEAR BKGD; Pregnancy, Urine Negative Negative; Record Kit Lot#,Urine Preg 929381
--- NOTE | 2024-09-15 10:30 | RAD_ITS ---
PROCEDURE: LEFT KNEE WITH MOBILE C-ARM 09/15/2024 REASON FOR EXAM: ARTHROSCOPY, RECONSTRUCTION MEDIAL PATELLOFEMORAL LIGAMENT TECHNIQUE: 2 view(s) of the LEFT knee Fluoroscopy: 75.2 sec Dose: 4.59 assign report mGy COMPARISON: NO RELEVANT PRIOR. FINDINGS: Bones: Lucent defects in the patella from removal of orthopedic screws. Joints: No dislocations or subluxations. Effusion: Small pocket of intraoperative air in patellofemoral joint. Soft tissues: Unremarkable Other: No other significant findings. RAD/Knee 1 or 2 Views IMPRESSION: Satisfactory operative images of the left knee in the operating room. Reading Location: [place] [address]
[2024-09-15] MEDS: 0.9% Normal Saline (1000mL) 1,000 ML 15 ML IV (10:46)
--- NOTE | 2024-09-15 10:51 | PCM.HP.STD ---
HPI - General HPI Narrative DELONTE ALVAREZ, is a 29 F who presents for left knee arthroscopy MPFL reconstruction. no changes to h and p. rab post op instructions and narcotic counselling. left leg marked. ok to proceed. [facility] [address] [place] [id number] OFFICE VISIT Date of Service: 08/05/24 MR#: [id number] Acct: [id number] Name: DELONTE ALVAREZ Rep #: [id number] : 1995 Provider: Dr. Clem Pérez MD Age/Sex: 29/F [place] [facility] [place] Status: Signed Intake Vital Signs 04/08/2409:31 Height 5 ft 6 in Intake Visit Reasons: left knee Chief Complaint: Left knee follow-up Accompanied by: Self Is patient in pain?: Yes Allergies amoxicillin Allergy (Verified 08/05/24 08:00) Anaphylaxisnaproxen Allergy (Verified 08/05/24 08:00) Anaphylaxisclindamycin Adverse Reaction (Verified 08/05/24 08:00) Nausea/Vom/DiarrheaPenicillins Adverse Reaction (Verified 08/05/24 08:00) Hivestramadol Adverse Reaction (Verified 08/05/24 08:00) Nausea/Vom/Diarrhea Medications ?Medication ?Instructions ?Recorded ?Confirmed ?Type albuterol sulfate 90 mcg/actuation 2 puff inhalation Q4H PRN PRN 05/12/22 08/05/24 Rx aerosol inhaler (Ventolin HFA) Wheezing ##1 acetaminophen 325 mg capsule 325 mg PO ONCE PRN 04/08/24 08/05/24 History (Tylenol) PFSH Medical History Instability of left patellofemoral joint Strain of left knee Left knee pain Cervical strain CHI (closed head injury) IBS (irritable bowel syndrome) Family History Grandmother Cervical cancer Social History adopted: No household members: spouse and children current occupational status: employed current occupation: [employer] current occupational exposures/hazards: No pets and animals: Yes pets and animals: cat(s), dog(s), bird(s) and guinea pig(s) sexually active: Yes Smoking Status: Current every day smoker tobacco type: e-cigarettes alcohol intake: never substance use type: marijuana caffeine: Yes Type: carbonated beverages and tea what type of physical activity do you participate in: none seatbelt use: always do you feel safe at home: Yes additional social history: - Robert WATERS left knee Details: This documentation accurately reflects the service provided and the decisions made by me, Dr. Clem Pérez MD 08/05/24 0758. Part of today?s visit was documented by [ ], acting as scribe. DELONTE ALVAREZ is a 29 year old F here today for 3.5 months follow-up left knee patellofemoral instability episode. Worker's Comp. claim. Patient has been back to very briefly but still is feeling like there is some patellofemoral instability and difficulty walking like the kneecap goes out laterally no damian dislocations however. Did try physical therapy for over 6 weeks Ortho Exam General General: Yes no acute distress Neurologic: Yes alert and Yes oriented x3 Psychologic: Yes reasonable and appropriate Right Knee Patella Translation: 3 Left Knee Skin/Wound: Yes CDI, No ecchymosis, No erythema and No swelling Knee ROM: Yes ROM-Flexion 0-140 Examination: Yes med jt line tenderness, No Lat jt line tenderness, Yes TTP inf pole patella, No Crepitus and No Pain with flexion Quad Atrophy: No (mild) Apprehension with Lateral Translation: Yes Patella Translation: 3 Patellar Tilt Normal: Yes Patella Grind: No KNEE: antalgic gait, no j sign Coding Level of Care Code Off vis,est,level 3 Diagnoses Instability of left patellofemoral joint M25.362 Strain of left knee S86.912A Assessment and Plan Assessment and Plan (1) Instability of left patellofemoral joint: Status: Acute Plan: DELONTE ALVAREZ is a 29 year old F here today for 3.5 months follow-up left knee patellofemoral instability episode. Worker's Comp. claim. The patient has ongoing symptoms and signs of patellofemoral instability as well as positive apprehension with 3 quadrants of lateral translation. Explained the different means of treating this continue nonoperative management therapy bracing rest ice anti-inflammatories and other conservative means. The surgical management of this would be left knee arthroscopy, medial patellofemoral ligament reconstruction. No patella reba or baja. Groove very slightly flat slight lateral tilt no chondral defects normal alignment overall. Does not appear that this patient would benefit from a TT osteotomy or groove deepening procedure therefore we will per the patient's request proceed with surgery in the form of left knee arthroscopy MPFL reconstruction. Will try to get Worker's Compensation approval before proceeding. The meantime no changes to the restrictions. Pros and cons risks and benefits were discussed with the patient including but not limited to infection, pain, stiffness, bleeding, damage to surrounding structures, neurovascular injury, recurrence or retear, failure or wear of hardware or fixation, instability, fracture, deep vein thrombosis and pulmonary embolism, anesthetic risks, , patient dissatisfaction, need for further surgery and other risks. Patient understood and wished to proceed with surgery, and signed the informed consent documentation. (2) Strain of left knee: Status: Acute [facility] Medical History Wears glasses Depression Anxiety Injury of head and neck History of IBS Vapes nicotine containing substance Smoker COPD (chronic obstructive pulmonary disease) History of pain when walking Hypotension Instability of left patellofemoral joint Strain of left knee Left knee pain Cervical strain CHI (closed head injury) IBS (irritable bowel syndrome) Home Medications ?Medication ?Instructions ?Recorded ?Last Taken ?Type albuterol sulfate 90 mcg/actuation 2 puff inhalation Q4H PRN PRN 05/12/22 Unknown Rx aerosol inhaler (Ventolin HFA) Wheezing ##1 acetaminophen 325 mg capsule 325 mg PO ONCE PRN pain 04/08/24 Unknown History (Tylenol) Allergy/AdvReac Type Severity Reaction Status Date / Time amoxicillin Allergy Anaphylaxis Verified 09/15/24 10:30 naproxen Allergy Anaphylaxis Verified 09/15/24 10:30 clindamycin AdvReac Nausea/Vom/ Verified 09/15/24 10:30 Diarrhea Penicillins AdvReac Hives Verified 09/15/24 10:30 tramadol AdvReac Nausea/Vom/ Verified 09/15/24 10:30 Diarrhea Family History Grandmother Cervical cancer Surgical History Hx of colonoscopy Social History adopted: No household members: spouse and children current occupational status: employed current occupation: [employer] current occupational exposures/hazards: No pets and animals: Yes pets and animals: cat(s), dog(s), bird(s) and guinea pig(s) sexually active: Yes Smoking Status: Current every day smoker tobacco type: cigarettes and e-cigarettes alcohol intake: never substance use type: marijuana caffeine: Yes Type: carbonated beverages and tea what type of physical activity do you participate in: none seatbelt use: always do you feel safe at home: Yes additional social history: - Robert Vital Signs Vital Signs Vital Signs: 09/15/24 10:31 09/15/24 10:31 Temperature 97.9 F Temperature Source Temporal Pulse Rate 60 Respiratory Rate 18 Respiratory Pattern Normal Blood Pressure 106/58 L Blood Pressure Mean 74 Blood Pressure Source Monitor Blood Pressure Position Semi-Fowlers Blood Pressure Location Left Arm Pulse Ox 99 Oxygen Delivery Method Room Air Weight Weight: 171 lb 15.369 oz Body Mass Index (BMI) 27.7 Results Lab / Micro Data Labs: Laboratory Results - last 24 hr 09/15/24 10:10: Urine Test Negative
[2024-09-15] MEDS: Cefazolin 2 GM in Syringe IV (12:24)
[2024-09-15] MEDS: Epinephrine (1 mg/ml) 1 MG/ML VIAL (12:46)
[2024-09-15] MEDS: Bupiv/Epi 0.25% 30 ML Vial (12:46)
--- NOTE | 2024-09-15 13:45 | PCM.OPRPT ---
Problems Associated Problem List Diagnoses (1) Instability of left patellofemoral joint: Procedures Musculoskeletal 20xxx-29xxx: Other Procedure See Report Operative Report (Standard) Operative Information Date of Procedure: 09/15/24 Pre-Operative Diagnosis: Left knee patellofemoral instability Post-Operative Diagnosis: Same Surgery/Procedure Performed: Left knee arthroscopy diagnostic, medial patellofemoral ligament reconstruction manager of pharmacy: Yes Shoe Repair Cobbler: victoria Tasks completed by anesthesiology physician assistant: Retracting Additional funeral assistant?: No Type of Anesthesia: General and Local RN Documented Start/Stop Times: Operation Date: 09/15/24 11:30 Case Time Into Pre-Op 09/15/24 10:21 Anesthesia Start 09/15/24 12:24 Into Room 09/15/24 12:24 Procedure Start 09/15/24 12:46 Procedure End 09/15/24 13:41 Out of Pre-Op Procedure Start Time: 12:46 Procedure Stop Time: 13:41 Select all DRAINS/GRAFTS/IMPLANTS that apply: Graft Graft details: Allograft gracilis tendon Estimated Blood Loss: 50 Specimen collected: No Description of surgery: Patient brought to the operating room theater. Placed supine on the table. General anesthesia induced. 2 g IV Ancef administered prior to the start of the procedure. Tourniquet applied to left thigh. SCD on the leg. All bony prominences padded. Stress positioner to the patient's left side bump on the left hip. Lower extremity prepped and draped in the usual sterile fashion allowing over 3 minutes drying time prior to draping. Preoperative timeout performed to confirm the site patient and the surgery., Began by elevating the limb inflated the tourniquet to 250 mm made a standard anterolateral and anteromedial arthroscopy portals. Did a full diagnostic arthroscopy. There was some minor amount of chondral fraying and damage to the undersurface of the distal pole patella. The patella was subluxed laterally. The trochlea appeared normal as did the cartilage of the medial and lateral compartments. Medial lateral meniscus as did the ACL all looked normal no loose bodies. Arthroscope withdrawn pictures taken and saved onto the case throughout the system. I then turned my attention towards performing the MPFL reconstruction. I made a small longitudinal 1.5 inch incision centered over the medial aspect of the patella carried the dissection down through skin and subcutaneous tissue achieved meticulous hemostasis. I dissected down staying extracapsular. Identified the medial aspect of the patella. Using intraoperative fluoroscopy I passed the guidepins and then reamed over top for the Arthrex swivel lock MPFL anchors. I un thawedthe gracilis graft this was presutured on each end. I then attached 1 end of the graft superiorly into the SwiveLock anchor, both anchors achieved good purchase into the bone with good squeak. I lengthened the tight rope and passed the graft through the tight rope button and then attached to a second swivel lock anchor distally to create a U configuration, with each free end of the graft attached to the patella. Identified [place] using landmarks posterior femoral cortex as well as lining up the condyles on the lateral radiograph and Blumensaat's line. Small 1 inch incision over the femoral MPFL site. I also used the included guide from the Arthrex set. I passed the pin at [place] as well as between the medial epicondyle and the abductor tubercle. I aim slightly proximal and anterior. I then reamed over top of this using the included reamer to a length of about 8 cm. I then passed the graft extra-articular down from the patella down towards the femoral attachment site. I used the pin to then passed the passing sutures flipped the button on the opposite cortex and then pulled on the shortening sutures to deliver the graft into the tunnel. I periodically as I was doing this checked the excursion of the graft and the [id number] motion of the patella with the knee in 30 degrees of flexion. This had a good check rein without being too tight. Full range of motion was achieved final radiographs were taken and saved onto the system. Sutures cut short. Wounds thoroughly irrigated tourniquet let down hemostasis achieved. Subcutaneous tissue closed with 2-0 Vicryl suture skin with 3-0 Monocryl. 10 cc of quarter percent bupivacaine instilled in and around the soft tissue sites. Skin cleaned with wet and dry dressing followed application of Steri-Strips Adaptic 4 x 4 gauze ABD dressings and Kenan wrap loosely wrapped as well as a hinged knee brace locked in full extension. Patient woken up from the general anesthetic transferred off the operating table to the postanesthetic care unit in stable condition. All sponge needle instrument counts were correct no complications plan for the patient partial weightbearing in full extension with crutches for the first 2 weeks and follow-up in the office next week. CPT 46016? Surgical Findings: As above Complications Complications: No Admit VTE Documentation VTE Present on Admission: No VTE Mechan Device Prophylaxis: SCD's VTE Pharm Prophylaxis ordered?: Yes
--- NOTE | 2024-09-15 13:56 | PCM.POST.ANE ---
Anesthesia: Postop Eval I Current Vital Signs Temperature: 97.7 F Pulse Rate: 74 Blood Pressure: 119/74 Respiratory Rate: 20 Pulse Ox: 97 Assessment Airway patent: Yes Spontaneous unlabored respirations: Yes nausea: No Vomiting: No Anesthesia Complication: No Fluid Hydration Crystalloid volume administer (ml): 1,100 Total IV fluid infused: 1,100 Progress Note Anesthesia document: Postop Eval 1 completed: Yes
--- NOTE | 2024-09-15 13:57 | EX.PCM.DISCH ---
Discharge Instructions Diet Discharge Diet: No restrictions Activity Discharge Activity: Use Crutches Ice area for (Minutes): 10 Weight Bearing Status: Partial weight bearing Lifting Restrictions: use brace fully straight and crutches 2 weeks Keep extremity elevated above heart level: Operative Extremity Dressing / Incision Call your doctor if your incision/area has: Continuous Slow Oozing, Sudden Increased Bleeding, Increased Pain/ Swelling, Increased Redness, Foul Smelling Discharge and Swelling at the incision site Call your doctor if you observe: Fever of 101 or Higher, Coldness, Increased Pain and Numbness or Tingling Remove Dressing in: leave in place till F/U Cleanse incision/area with: Do not get Incision Wet Follow Up Care Please Follow Up With: Clem Pérez MD When: 2 weeks Test Results: Test results from this visit will be discussed in further detail at your follow-up appointment, if applicable. Discharge Plan Admission Attending Provider: Clem Pérez Primary Care Provider: Care Physician,No Primary Instructions Print Language: Macedonian Discharge Orders/Prescriptions Prescriptions: New oxycodone-acetaminophen [Endocet] 5-325 mg tablet 1 tab PO Q4H MDD 6 PRN (Reason: pain) 3 Days Qty: 14 0RF No Action acetaminophen [Tylenol] 325 mg capsule 325 mg PO ONCE PRN (Reason: pain) albuterol sulfate [Ventolin HFA] 90 mcg/actuation HFA aerosol inhaler 2 puff inhalation Q4H PRN PRN (Reason: Wheezing) Qty: 1 0RF Rx Instructions: dispense with spacer Referrals / Follow Up: Clem Pérez MD [Med Staff - Active Staff] - [facility] [Non-Staff] - Disposition Disposition (needs filled in before D/C Order can be placed): Home, Self Care
--- NOTE | 2024-09-15 14:34 | POSTOPAN2_ITS ---
Anesthesia Postop Eval I Sum Postop Eval Completion status Anesthesia document: Postop Eval 1 completed: Yes Anesthesia Postop Eval I Summary Anesthesia Postop Eval I Summary: Anesthesia Postop Eval I: Assessment Summary Airway patent Yes 09/15/24 13:57 PROGRESS [email or web address] Spontaneous unlabored Yes 09/15/24 13:57 PROGRESS [email or web address] respirations Mental status nausea No 09/15/24 13:57 PROGRESS [email or web address].CSIR Vomiting No 09/15/24 13:57 PROGRESS [email or web address].CSIR Anesthesia Postop Eval I: Fluid Summary Crystalloid volume administer 1,100 09/15/24 13:57 PROGRESS [email or web address].CSIR (ml) Colloids volume administered ( ml) Blood Product volume administered (ml) Total IV fluid infused ,100 09/15/24 13:57 PROGRESS [email or web address].CSIR Anesthesia Postop Eval I: Summary Notes Anesthesia Complication No 09/15/24 13:57 PROGRESS [email or web address].CSIR Anesthesia Complication Comment: Post-operative progress note Anesthesia: Postop Eval II Evaluation Mental status: Awake Pain Level: 1 nausea: No Vomiting: No
--- NOTE | 2024-09-15 14:34 | PCM.POSTANE2 ---
Anesthesia Postop Eval I Sum Postop Eval Completion status Anesthesia document: Postop Eval 1 completed: Yes Anesthesia Postop Eval I Summary Anesthesia Postop Eval I Summary: Anesthesia Postop Eval I: Assessment Summary Airway patent Yes 09/15/24 13:57 [email or web address] Spontaneous unlabored Yes 09/15/24 13:57 [email or web address] respirations Mental status nausea No 09/15/24 13:57 [email or web address] Vomiting No 09/15/24 13:57 [email or web address] Anesthesia Postop Eval I: Fluid Summary Crystalloid volume administer 1,100 09/15/24 13:57 [email or web address] (ml) Colloids volume administered ( ml) Blood Product volume administered (ml) Total IV fluid infused ,100 09/15/24 13:57 [email or web address] Anesthesia Postop Eval I: Summary Notes Anesthesia Complication No 09/15/24 13:57 [email or web address] Anesthesia Complication Comment: Post-operative progress note Anesthesia: Postop Eval II Evaluation Mental status: Awake Pain Level: 1 nausea: No Vomiting: No
[2024-09-15] MEDS: HYDROcodone Bitartrate/Apap 5/325 Tablet PO (16:04)
== END 2024-09-15 16:15 | disposition home or self-care (01) ==
LOC: SDC 09:57 → AC 09:58
PROVIDERS: Anesthesiology; Referring Provider Orthopaedic Surgery Sports Medicine; Visit Provider Orthopaedic Surgery Sports Medicine
PROC: (CPT 27427; principal; 2024-09-15 11:10)
DX: M25.362 Other instability, left knee (principal); F17.210 Nicotine dependence, cigarettes, uncomplicated; F17.290 Nicotine dependence, other tobacco product, uncomplicated
CPT/HCPCS: 27427; 01400; 73560; 76000; 81025; C1713; J2405

== ENCOUNTER 2025-01-27 08:00 | Outpatient (RCR) | payer OTHER, SELFPAY ==
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
--- NOTE | 2025-01-27 08:28 | HP.PTDCSUM ---
Discharge Summary D/C summary: It has been my pleasure to treat DELONTE ALVAREZ referred by BEAR MALIN, with the diagnosis of Chronic neck pain, M54.2; Dizziness for a total of 10 visit(s). Discharge Date: 01/27/25 Please see the following information for a summary of their discharge status. Subjective Subjective: Dizziness and neck pain are no better. Pt will see the Dr in March again and looking into other treatments. Pt is more dizziness first thing in the morning. 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 Pain neck: Pain Intensity (Out of 10): 3 LANDEROS: Pain Intensity (Out of 10): 3 Overall Improvement % Improvement: 0 Objective Objective/Function: No improvement with picking up objects from the floor. Able to SLB X 30 seconds without LOB Goals Goal 1:: Pt. will be independent with home exercise program. Goal Progress: Goal Met Goal 2:: Pt. will have no dizziness with sit to stand transition. Goal Progress: Not Progressing Goal 3:: Pt. will be able to bend forward to pick something up with no dizziness. Goal Progress: Not Progressing Goal 4:: Pt. will improve SLS to 30 secs in order to improve stability and balance. Goal Progress: Goal Met Goal 5:: Pt. will rate neck pain at worst at 3/10 with ADL's and work activity. Goal Progress: Not Progressing Goal 6:: Pt. will improve DHI score < 45 in order to improve dizziness and balance. Plan Plan: DC PT back to D/C Information Discharge Comments: DC PT back to Dr as PT has not helped. d/c sentence: If there are questions or concerns regarding this patient's physical therapy, please feel free to call me at [phone]. Thank you for the referral of this patient. Sincerely, Holly Guerrero, MPT Balance/Gait/Functional tests Balance/Special Test Scores Dizziness Score: 60 Improvement % Improvement: 0
== END 2025-01-27 10:36 | disposition home or self-care (01) ==
LOC: PT 08:00
DX: M54.2 Cervicalgia (principal); G89.29 Other chronic pain
CPT/HCPCS: 97110; 97140; 97161; 97530

== ENCOUNTER 2025-04-15 08:30 | Outpatient (RCR) | payer OTHER, SELFPAY ==
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
--- NOTE | 2024-11-22 08:18 | HP.PTREVAL ---
Re-Evaluation Intro: Dr. Clem Pérez MD, It has been my pleasure to treat DELONTE ALVAREZ over the last 18 visits for s/p L MPFL reconstruction early september. Please see the progress note below for an update on the physical therapy plan of care! Subjective Subjective: Pain not an issue unless quick movements at incision, feels tight. squatted the other day and knee hurt transiently. Motion is good. Needs to jog and move quickly for full go at job, he is on light duty now. Objective Objective/Function: 0-115, limitied buy tightness end range. SLR without lag 10x walks i without gait deviations today. Steps reciprocally without a probelm or rail but weak on L leg is obvious. Plan Plan Plan: 2-3x/week for 4 weeks for 1. ROM to L knee, work on end range. 2. strength in gym to quad and get I with LE strength at his gym 3. start controlled in clinic ply and change of direction, RTR protocol. Last goal still appropriate for next 4 weks and fair to good prognosis. Should get 4 more weeks of PT and will need approval to do so. Balance/Gait/Functional tests Balance/Special Test Scores Lower Extremity Functional Score: 14 Goals Goals Goal 1:: ST 0-90 AROM without pain Goal Time Frame: 2 Weeks Goal Progress: Goal Met Goal 2:: SLR x 10 without lag or pain Goal Time Frame: 2 Weeks Goal Progress: Goal Met Goal 3:: walk and steps normally without symptoms or deviations Goal Time Frame: 4-6 Weeks Goal 4:: I appropriate strength for hips and LE and core Goal Time Frame: 4-6 Weeks Goal Progress: Progressing Goal 5:: LEFS score 66 Goal Time Frame: 4-6 Weeks Goal 6:: Plan to return to work by end December Goal Time Frame: 4-6 Weeks Goal Progress: still apporpriate Anticipated Interventions Anticipated Interventions Patient/Client Instruction: Educate patient on: Condition and Plan of Care For the Purpose of:: To decrease pain, To increase ROM, To improve nutrient delivery to tissue, To improve muscle performance and motor function, To increase tolerance to activity/condition/position, To improve ability of physical actions for home/community/work/leisure and To improve gait and locomotor functions Therapeutic Exercise to Include: Strength training, Flexibilty training, Gait and locomotor training, Passive ROM and Active ROM For the Purpose of:: To decrease pain, To increase ROM, To improve nutrient delivery to tissue, To improve muscle performance and motor function, To increase tolerance to activity/condition/position and To improve gait and locomotor functions Manual Therapy Techniques to Include: Massage, Mobilization, Passive ROM and Soft tissue mobilization For the Purpose of:: To decrease pain, To increase ROM, To improve nutrient delivery to tissue, To increase tolerance to activity/condition/position, To improve ability of physical actions for home/community/work/leisure and To improve gait and locomotor functions Cryotherapy (ice pack, ice massage): Yes For the Purpose of:: To decrease pain, To increase ROM, To improve nutrient delivery to tissue, To increase tolerance to activity/condition/position and To improve gait and locomotor functions Re-Evaluation Ending Re-evaluation ending: Please do not hesitate to contact me at [phone] by phone or if you have questions or concerns regarding this new plan of care! Sincerely, Xavier Restrepo, DPT, OCS, CSCS
--- NOTE | 2025-01-07 09:27 | HP.PTREVAL ---
Re-Evaluation Intro: Dr. Clem Pérez MD, It has been my pleasure to treat DELONTE ALVAREZ over the last 29 visits for s/p L MPFL reconstruction early september. Please see the progress note below for an update on the physical therapy plan of care! Subjective Subjective: Doing allr ight. Stairs still feels likee it wants to give out, hard to trust L leg to get to next step. Standing too long can be more than one hour and feels weak. Pivotting can still be poor confidence. Almost went down turning to get nephew. Sees Elisa in 2 weeks. 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 Teemporary disabiity right now. HEP: squats with weight , gym 3x/week, step ups, Pt would worry about return to work with his job demanding quick movements at times and long standing times over 8 hours often. Also poor confidence in whether it will give out or not which has not happened but is a fear of his. Objective Objective/Function: 0-115 AROM L knee, stiff and tight at end range adn does not push into it much until cued. Incisions healed well. Walking without antalgia or pain today, no hesitancy noted except possibly when turning adn on the steps, weakness persists on descnding steps which is safe but hesitant and weak without UE on rail, up looks normal. Pt hesitant to say he is ready to rTW as he may have to move quick, jog and be on feet 14 hours without a break and not sure he would tolerate that. Plan Plan Plan: Pt to doctor in 2 weeks. he is doing well with improving funciton but continues to lack ROM(but he is funcitonal here), and strength in L hip and knee(again funcitonal but his confidence is poor with his perception of his job demands being high and not likely to toleerate well at this point subjectively.) Will visit doctor and continue strength at gym adn home and ROM ex at home in meantime. Further therapy may be appropriate to monitor adn progress strength adn start plyo, agility, pivotting movement for confidnce. Possibly a work conditioning option. Pt to call after doctor visit for d/c or continue. Check strenegth adn HEP for progression if returns. Balance/Gait/Functional tests Balance/Special Test Scores Lower Extremity Functional Score: 54 Goals Goals Goal 1:: ST 0-90 AROM without pain Goal Time Frame: 2 Weeks Goal Progress: Goal Met Goal 2:: SLR x 10 without lag or pain Goal Time Frame: 2 Weeks Goal Progress: Goal Met Goal 3:: walk and steps normally without symptoms or deviations Goal Time Frame: 4-6 Weeks Goal Progress: Goal Met Goal 4:: I appropriate strength for hips and LE and core Goal Time Frame: 4-6 Weeks Goal Progress: Goal Met Goal 5:: LEFS score 66 Goal Time Frame: 4-6 Weeks Goal Progress: Progressing Goal 6:: Plan to return to work by end December Goal Time Frame: 4-6 Weeks Goal Progress: Not met Anticipated Interventions Anticipated Interventions Patient/Client Instruction: Educate patient on: Condition and Plan of Care For the Purpose of:: To decrease pain, To increase ROM, To improve nutrient delivery to tissue, To improve muscle performance and motor function, To increase tolerance to activity/condition/position, To improve ability of physical actions for home/community/work/leisure and To improve gait and locomotor functions Therapeutic Exercise to Include: Strength training, Flexibilty training, Gait and locomotor training, Passive ROM and Active ROM For the Purpose of:: To decrease pain, To increase ROM, To improve nutrient delivery to tissue, To improve muscle performance and motor function, To increase tolerance to activity/condition/position and To improve gait and locomotor functions Manual Therapy Techniques to Include: Massage, Mobilization, Passive ROM and Soft tissue mobilization For the Purpose of:: To decrease pain, To increase ROM, To improve nutrient delivery to tissue, To increase tolerance to activity/condition/position, To improve ability of physical actions for home/community/work/leisure and To improve gait and locomotor functions Cryotherapy (ice pack, ice massage): Yes For the Purpose of:: To decrease pain, To increase ROM, To improve nutrient delivery to tissue, To increase tolerance to activity/condition/position and To improve gait and locomotor functions Re-Evaluation Ending Re-evaluation ending: Please do not hesitate to contact me at [phone] by phone or if you have questions or concerns regarding this new plan of care! Sincerely, Xavier Restrepo, DPT, OCS, CSCS
--- NOTE | 2025-03-14 09:06 | HP.PTREVAL ---
Re-Evaluation Intro: Dr. Clem Pérez MD, It has been my pleasure to treat DELONTE ALVAREZ over the last 30 visits for s/p L MPFL reconstruction early september. Please see the progress note below for an update on the physical therapy plan of care! Subjective Subjective: Been waiting for approval. Going to [employer] and doing a leg day with lunges, knee ext, leg press, leg curl, calf raise stadning and seated, squats, lifts at home. Does leg workout 2x/week. Legs tired when donee. Pain is not an issue. Quick movements stillf feel collapsible. Sleep is fine with knee. back to work in two weeks. 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 Objective Objective/Function: walking normal today. Weakness on dips with L and lateral movements awkward. Jumping B LE shows favorintism to R avoiding L even after cued. hip strength abd and ext L 4- vs 4+ on R, ext 4 L vs 5 on R still hesitant with qucik movements ROM L kneee is WFL, steps are reciprocal up and down with no rail. Plan Plan Plan: 3x/week for 2-4 weeks(pt likely will not be able to continue once returns to work) for 1. Ensure leg strengthening at [employer]. 2. work on plyo and agility progression and funcitonal hip lateral strength in clinic and progress HEP. NEW POC set and goals updated per c9. Balance/Gait/Functional tests Balance/Special Test Scores Lower Extremity Functional Score: 54 Goals Goals Goal 1:: ST 0-90 AROM without pain Goal Time Frame: 2 Weeks Goal Progress: Goal Met Goal 2:: SLR x 10 without lag or pain Goal Time Frame: 2 Weeks Goal Progress: Goal Met Goal 3:: walk and steps normally without symptoms or deviations Goal Time Frame: 4-6 Weeks Goal Progress: Goal Met Goal 4:: Pt feel 95 % back to normal adn confident with lateral movement to escape traffic at work. Goal Time Frame: 4-6 Weeks Goal Progress: NEW GOAL Goal 5:: LEFS score 66 Goal Time Frame: 4-6 Weeks Goal Progress: Progressing, appropriate. Goal 6:: Plan to return to work by Goal Time Frame: 4-6 Weeks Goal Progress: new goal Anticipated Interventions Anticipated Interventions Patient/Client Instruction: Educate patient on: Condition and Plan of Care For the Purpose of:: To decrease pain, To increase ROM, To improve nutrient delivery to tissue, To improve muscle performance and motor function, To increase tolerance to activity/condition/position, To improve ability of physical actions for home/community/work/leisure and To improve gait and locomotor functions Therapeutic Exercise to Include: Strength training, Flexibilty training, Gait and locomotor training, Passive ROM and Active ROM For the Purpose of:: To decrease pain, To increase ROM, To improve nutrient delivery to tissue, To improve muscle performance and motor function, To increase tolerance to activity/condition/position and To improve gait and locomotor functions Manual Therapy Techniques to Include: Massage, Mobilization, Passive ROM and Soft tissue mobilization For the Purpose of:: To decrease pain, To increase ROM, To improve nutrient delivery to tissue, To increase tolerance to activity/condition/position, To improve ability of physical actions for home/community/work/leisure and To improve gait and locomotor functions Cryotherapy (ice pack, ice massage): Yes For the Purpose of:: To decrease pain, To increase ROM, To improve nutrient delivery to tissue, To increase tolerance to activity/condition/position and To improve gait and locomotor functions Re-Evaluation Ending Re-evaluation ending: Please do not hesitate to contact me at [phone] by phone or if you have questions or concerns regarding this new plan of care! Sincerely, Xavier Restrepo, DPT, OCS, CSCS
--- NOTE | 2025-04-15 09:18 | HP.PTDCSUM_ITS ---
Discharge Summary D/C summary: It has been my pleasure to treat DELONTE ALVAREZ referred by Dr. Clem Pérez MD, with the diagnosis of s/p L MPFL reconstruction early september for a total of 42 visit(s). Discharge Date: 04/15/25 Please see the following information for a summary of their discharge status. Subjective Subjective: [employer] Specialist present today. I feel like I am 82%. Still feels weak with landing on L leg. Pain is not an issue. sleeping well. Home activities and hobbies normal. To doctor next Friday. Ready to go back. Goes to gym 6 days per week. Pain L knee: Pain Intensity (Out of 10): 0 Overall Improvement % Improvement: 82 Objective Objective/Function: Full ROM L knee but pain end range with OP trasniently. squatting without deficits and symmetrical. 5/5 strength L hip and knee. jump adn land looks great. SLH L awkward vs R but stable and safe. side shuffle adn change directions without compeensation or pain. looking good overall. Goals Goal 1:: ST 0-90 AROM without pain Goal Progress: Goal Met Goal 2:: SLR x 10 without lag or pain Goal Progress: Goal Met Goal 3:: walk and steps normally without symptoms or deviations Goal Progress: Goal Met Goal 4:: Pt feel 95 % back to normal adn confident with lateral movement to escape traffic at work. Goal Progress: 82% Goal 5:: LEFS score 66 Goal Progress: Goal Met Goal 6:: Plan to return to work by Goal Progress: Next week.one month delay Plan Plan: d/c, pt to doctor next week for likely release adn he feels ready as he will ever be. D/C Information Discharge Comments: Clinically ready to be done and RTW. Should continue 2x/wek LE strength. d/c sentence: If there are questions or concerns regarding this patient's physical therapy, please feel free to call me at [phone]. Thank you for the referral of this patient. Sincerely, Xavier Restrepo, DPT, OCS, CSCS Balance/Gait/Functional tests Balance/Special Test Scores Lower Extremity Functional Score: 68 Improvement % Improvement: 82
== END 2025-04-15 19:00 | disposition home or self-care (01) ==
LOC: PT 08:30
PROVIDERS: Referring Provider Orthopaedic Surgery Sports Medicine; Visit Provider Orthopaedic Surgery Sports Medicine
DX: M25.362 Other instability, left knee (principal); M54.2 Cervicalgia; G89.29 Other chronic pain
CPT/HCPCS: 97110; 97140; 97161; 97530